=== PATIENT | female | born 2000 | race Caucasian/White ===

== ENCOUNTER 2023-08-26 06:24 | Emergency (ER) | payer OTHER ==
[~2023-08-26] VITALS: Ht 160 cm; Wt 90.0 kg
[2023-08-26 06:27] VITALS: TEMP 97.7
[2023-08-26 06:35] VITALS: BP 110/55; PULSE 62; RESP 16
[2023-08-26] MEDS: KETOROLAC TROMETHAMINE 60 MG/2 ML VIAL IM ONE (06:59)
[2023-08-26] MEDS ORDERED: TRAM50TA5 PO (07:22)
[2023-08-26] MEDS ORDERED: DIPH50CA37 PO (07:22)
== END 2023-08-26 07:34 | disposition home or self-care (01) ==
LOC: EMS 06:26
DX: R51.9 Headache, unspecified (principal); Z86.69 Personal history of other diseases of the nervous system and sense organs
CPT/HCPCS: 99283; 96372; J1885